=== PATIENT | female | born 1995 | race Caucasian/White ===

== ENCOUNTER → 2017-04-02 | Outpatient (CLI) | payer MEDICAID ==
[~2017-04-02] MED LIST: CONCERTA27 MG PO; ZOFRAN24 MG PO
[2017-04-02 17:35] LABS: HEMOGLOBIN 13.6 g/dL (12.2-16.2); LYMPH # 0.7 K/mm3 (0.7-4.5); LYMPH % 9.7 % (10-50.0)
[2017-04-02 18:53] LABS: AMPHETAMINES/METAMPHETAMINES NEGATIVE ng/mL (<1000)
[2017-04-02 19:12] LABS: NEUTROPHILS 86 % (42-76)
[2017-04-02 22:35] LABS: ABO BLOOD TYPE A; RH BLOOD TYPE POSITIVE
[2017-04-04 08:39] LABS: HBsAg Screen Negative (Negative); HIV Screen 4th Generation wRfx Non Reactive (Non Reactive); Rapid Plasma Reagin, Quant Non Reactive (NonRea<1:1)
== END ==
LOC: LAB 17:00
PROVIDERS: Obstetrics & Gynecology
DX: Z04.8 Encounter for examination and observation for other specified reasons (principal); Z36 Encounter for antenatal screening of mother
CPT/HCPCS: G0432

== ENCOUNTER → 2017-04-23 | Outpatient (CLI) | payer MEDICAID ==
[2017-05-01 17:37] LABS: Results REPORT
[2017-05-01 17:38] LABS: AFP Value 36.4 ng/mL; Gest. Age on Collection Date 16.3 WEEKS; Insulin Dep Diabetes NOT PROVIDED; Maternal Age At EDD 21.6 YEARS
[2017-05-01 17:39] LABS: DIA Value 191.11 pg/mL; DSR (Second Trimester) 1 IN 10000; Interpretation SCREEN NEGATIVE; OSBR Risk 1 IN 10000; hCG MoM 0.35; hCG Value 17676 mIU/mL; uE3 MoM 0.82; uE3 Value 0.85 ng/mL
== END ==
LOC: LAB 14:36
PROVIDERS: Obstetrics & Gynecology
DX: Z36.0 Encounter for antenatal screening for chromosomal anomalies (principal); Z36.9 Encounter for antenatal screening, unspecified